=== PATIENT | female | born 1985 | race Caucasian/White ===

== ENCOUNTER 2016-12-13 15:53 | Emergency (ER) | payer OTHER ==
[2016-12-13 16:00] VITALS: BP 137/85
== END 2016-12-13 17:51 | disposition home or self-care (01) ==
LOC: ED 15:53
DX: B34.9 Viral infection, unspecified (principal); R30.0 Dysuria; R03.0 Elevated blood-pressure reading, without diagnosis of hypertension; E03.9 Hypothyroidism, unspecified; K21.9 Gastro-esophageal reflux disease without esophagitis; R39.15 Urgency of urination; R35.0 Frequency of micturition
CPT/HCPCS: J1885; J7613; J7644; Q0162

== ENCOUNTER 2017-03-16 16:50 | Emergency (ER) | payer OTHER ==
[~2017-03-16] VITALS: Ht 154.9 cm; Wt 77.6 kg
[2017-03-16 19:15] VITALS: BP 131/85
== END 2017-03-16 19:15 | disposition home or self-care (01) ==
LOC: ED 16:50
DX: N39.0 Urinary tract infection, site not specified (principal); K21.9 Gastro-esophageal reflux disease without esophagitis; E03.9 Hypothyroidism, unspecified
CPT/HCPCS: J1885; Q0162

== ENCOUNTER 2017-09-03 10:45 | Emergency (ER) | payer OTHER ==
[~2017-09-03] VITALS: Ht 154.9 cm; Wt 79.4 kg
[2017-09-03 10:49] VITALS: BP 104/70; Ht 154.9 cm; Wt 79.4 kg
== END 2017-09-03 12:33 | disposition home or self-care (01) ==
LOC: ED 10:45
DX: M54.6 Pain in thoracic spine (principal); K21.9 Gastro-esophageal reflux disease without esophagitis; E03.9 Hypothyroidism, unspecified; Z86.79 Personal history of other diseases of the circulatory system
CPT/HCPCS: J1885

== ENCOUNTER 2018-06-15 09:36 | Emergency (ER) | payer OTHER ==
[~2018-06-15] VITALS: Ht 152.4 cm; Wt 81.2 kg
[2018-06-15 09:53] VITALS: Ht 152.4 cm; Wt 81.2 kg
[2018-06-15 11:33] VITALS: BP 141/83
== END 2018-06-15 11:33 | disposition home or self-care (01) ==
LOC: ED 09:36
DX: J06.9 Acute upper respiratory infection, unspecified (principal); K21.9 Gastro-esophageal reflux disease without esophagitis; E03.9 Hypothyroidism, unspecified
CPT/HCPCS: J0780